=== PATIENT | female | born 1975 | race African-American/Black ===

== ENCOUNTER 2018-11-30 11:23 | Emergency (ER) | payer BC ==
[2018-11-30 13:00] LABS: ADD MAN DIFF? NO
[2018-11-30 13:07] LABS: WHITE BLOOD COUNT 12.7 10^3/ul (4.8-10.8)
[2018-11-30 13:07] LABS: BASOPHIL # 0.1 10^3/ul (0.0-0.1); BASOPHILS % 0.6 % (0.0-2.0); EOSINOPHILS # 0.3 10^3/ul (0.0-0.5); HEMATOCRIT 35.7 % (37.0-47.0); HEMOGLOBIN 10.8 g/dl (12.0-16.0); LYMPHOCYTES # 3.5 10^3/ul (0.8-2.9); LYMPHOCYTES % 27.4 % (15.0-51.0); MEAN CORPUSCULAR HEMOGLOBIN 22.6 pg (29.0-33.0); MEAN CORPUSCULAR HGB CONC 30.3 g/dl (32.0-37.0); MEAN CORPUSCULAR VOLUME 74.8 fl (82.0-101.0); MEAN PLATELET VOLUME 9.3 fl (7.4-10.4); MONOCYTE # 0.6 10^3/ul (0.3-0.9); MONOCYTES % 4.7 % (0.0-11.0); NEUTROPHIL # 8.3 10^3/ul (1.6-7.5); PLATELET COUNT 477 10^3/UL (140-415); RED BLOOD COUNT 4.77 10^6/ul (4.20-5.40); RED CELL DISTRIBUTION WIDTH 16.5 % (11.5-14.5)
[2018-11-30] MEDS: KETOROLAC 60 MG INJ IM (13:08)
[2018-11-30 13:33] LABS: D-DIMER 335.76 ng/ml (<460)
[2018-11-30 13:38] LABS: ALANINE AMINOTRANSFERASE 33 IU/L (13-69); ALBUMIN 4.4 g/dl (3.3-4.9); ALBUMIN/GLOBULIN RATIO 0.95; ALKALINE PHOSPHATASE 88 IU/L (42-121); ANION GAP 9 (5-13); ASPARTATE AMINO TRANSFERASE 41 IU/L (15-46); BILIRUBIN,INDIRECT 0.3 mg/dl (0-1.1); BILIRUBIN,TOTAL 0.3 mg/dl (0.2-1.3); BLOOD UREA NITROGEN 8 mg/dl (7-20); CALCIUM 9.8 mg/dl (8.4-10.2); CARBON DIOXIDE 27 mmol/L (21-31); CHLORIDE 107 mmol/L (97-110); Estimated GFR > 60 mL/min (>60); GLUCOSE 107 mg/dl (70-220); POTASSIUM 4.3 mmol/L (3.5-5.1); SODIUM 143 mmol/L (135-144)
[2018-11-30 13:48] LABS: TROPONIN-I < 0.012 ng/ml (0.000-0.120)
== END 2018-11-30 14:29 | disposition home or self-care (01) ==
LOC: FTE 11:23
DX: R07.89 Other chest pain (principal); I10 Essential (primary) hypertension; F17.210 Nicotine dependence, cigarettes, uncomplicated
CPT/HCPCS: 71045; 80053; 81025; 84484; 85025; 85378; 93005; 96372; 99285-25